=== PATIENT | female | born 1930 | race Two or more races ===

== ENCOUNTER 2019-05-14 23:14 | Emergency (ER) | payer SELFPAY ==
[~2019-05-14] VITALS: Ht 152.4 cm; Wt 40.8 kg
[2019-05-14] MEDS ORDERED: cloNIDine HCL 0.1 MG TAB PO ONE (23:45)
[2019-05-15 00:42] LABS: Basophils # (auto) 0 uL; Basophils % (auto) 0.1 % (0.0-2.0); Eosinophils # (auto) 0 uL; Hematocrit 41.4 % (36.0-46.0); Hemoglobin 13.7 g/dL (12.2-16.2); Lymphocytes # (auto) 0.3 uL; Lymphocytes % (auto) 1.6 % (10.0-50.0); Mean Corpuscular Hemoglobin 28.6 pg (28.0-32.0); Mean Corpuscular Hgb Conc. 33.1 g/dL (32.0-36.0); Mean Corpuscular Volume 86.3 fL (80.0-100.0); Monocytes # (auto) 0.2 uL; Monocytes % (auto) 1.3 % (0.0-12.0); Neutrophils # (auto) 15.2 uL; Platelet Count (auto) 326 10^3/uL (140-450); Red Cell Distribution Width 15.1 % (11.8-14.3); White Blood Cell 15.7 10^3/uL (4.4-10.8)
[2019-05-15 01:02] LABS: Alanine Aminotransferase 28 U/L (13-56); Albumin 3.8 g/dL (3.4-5.0); Anion Gap 8 (5-15); Aspartate Aminotransferase 37 U/L (15-37); BUN/Creatinine Ratio 27.9; Blood Urea Nitrogen 19 mg/dL (7-18); Carbon Dioxide 28 mmol/L (21-32); Chloride 99 mmol/L (98-107); GFR African American 105 mL/min; GFR Non-African American 87 mL/min; Glucose 163 mg/dL (74-106); Magnesium 2.2 mg/dL (1.6-2.6); Potassium 3.5 mmol/L (3.5-5.1); Sodium 135 mmol/L (136-145)
[2019-05-15 01:07] LABS: Alkaline Phosphatase 135 U/L (45-117); Bilirubin, Total 0.5 mg/dL (0.2-1.0); Total Protein 9.4 g/dL (6.4-8.2)
[2019-05-15 01:25] LABS: INR 1.01 (0.9-1.15); Partial Thromboplastin Time 28.7 sec (23.64-32.05)
[2019-05-15 01:36] VITALS: BP 208/92
[2019-05-15 01:49] LABS: Urine Bacteria FEW /hpf (None Seen); Urine Blood 1+ /uL (Negative); Urine Specific Gravity 1.013 (1.001-1.035); Urine WBC 1 /hpf (0 - 5)
== END 2019-05-15 01:58 | disposition home or self-care (01) ==
LOC: ER 23:21 → EDSEX 23:21 → ER 05-15 01:58
DX: I60.9 Nontraumatic subarachnoid hemorrhage, unspecified (principal); I16.9 Hypertensive crisis, unspecified
CPT/HCPCS: 36415; 70450; 71045; 80053; 81001; 83735; 83880; 84484; 85025; 85610; 85730; 96365; 99291